=== PATIENT | male | born 1980 | race Two or more races ===

== ENCOUNTER 2023-03-10 03:06 | Emergency (ER) | payer OTHER ==
[~2023-03-10] VITALS: Ht 167.6 cm; Wt 77.1 kg
[2023-03-10] MEDS ORDERED: PERCOCET 10-321 EACH PO (03:14)
[2023-03-10] MEDS ORDERED: ACID REDUCER20 M1 PO (03:14)
[2023-03-10] MEDS ORDERED: SILVASORB480 ML TOP (05:34)
[2023-03-10] MEDS ORDERED: KETO10TA2 PO (05:36)
[2023-03-10] MEDS ORDERED: CEPHALEXIN500 MG PO (05:36)
== END 2023-03-10 05:38 | disposition home or self-care (01) ==
LOC: ER 03:06
DX: S70.01XA Contusion of right hip, initial encounter (principal); S50.11XA Contusion of right forearm, initial encounter; S50.312A Abrasion of left elbow, initial encounter; S50.311A Abrasion of right elbow, initial encounter; S80.212A Abrasion, left knee, initial encounter; S80.211A Abrasion, right knee, initial encounter; V19.9XXA Pedal cyclist (driver) (passenger) injured in unspecified traffic accident, initial encounter; Y93.89 Activity, other specified; Y92.89 Other specified places as the place of occurrence of the external cause; Y99.9 Unspecified external cause status

== ENCOUNTER → 2023-04-20 | Emergency (ER) | payer OTHER ==
[~2023-04-20] VITALS: Ht 172.7 cm; Wt 82.6 kg
[~2023-04-20] MED LIST: ACID REDUCER20 M1 PO; CEPHALEXIN500 MG PO; DUI500 PO; KETO10TA2 PO; MUPIROCIN15 GM TOP; PERCOCET 10-321 EACH PO; SILVASORB480 ML TOP
== END | disposition home or self-care (01) ==
LOC: ER 19:47
DX: S01.82XA Laceration with foreign body of other part of head, initial encounter (principal); W18.39XA Other fall on same level, initial encounter; Y93.55 Activity, bike riding; Y92.488 Other paved roadways as the place of occurrence of the external cause; R51.9 Headache, unspecified; S81.021A Laceration with foreign body, right knee, initial encounter

== ENCOUNTER 2023-04-29 18:33 | Emergency (ER) | payer OTHER ==
[~2023-04-29] VITALS: Ht 172.7 cm; Wt 82.6 kg
== END 2023-04-29 21:40 ==
LOC: ER 18:33
DX: Z48.02 Encounter for removal of sutures (principal)